=== PATIENT | male | born 2000 | race African-American/Black ===

== ENCOUNTER 2023-05-23 17:06 | Emergency (ER) | payer OTHER ==
[2023-05-23] MEDS ORDERED: Diphtheria,Pertussis(Acell),Tetanus Vaccine 0.5 ML Syringe IM ONE (17:32)
[2023-05-23] MEDS ORDERED: Lidocaine 1% PF 2 ML SDV INJECT ONE (17:32)
[2023-05-23] MEDS ORDERED: Acetaminophen/HYDROcodone 325-5 MG Tab PO ONE (18:06)
[2023-05-23] MEDS ORDERED: ceFAZolin 1 GM Vial IM ONE (18:07)
[2023-05-23] MEDS ORDERED: Bacitracin Oint 1 GM U/D Packet TOP ONE (18:08)
[2023-05-23] MEDS ORDERED: Water For Injection, Sterile 20 ML ONE (18:15)
== END 2023-05-23 19:11 | disposition home or self-care (01) ==
LOC: MW.ED 17:06
DX: S62.634B Displaced fracture of distal phalanx of right ring finger, initial encounter for open fracture (principal); S61.214A Laceration without foreign body of right ring finger without damage to nail, initial encounter; Z23 Encounter for immunization; Z88.6 Allergy status to analgesic agent; Z79.899 Other long term (current) drug therapy; W26.8XXA Contact with other sharp object(s), not elsewhere classified, initial encounter
CPT/HCPCS: 12001; 73130; 90471; 90715; 96372; 99283; A9270; J0690; J3490

== ENCOUNTER 2023-06-02 17:17 | Emergency (ER) | payer OTHER ==
[2023-06-02] MEDS ORDERED: Lidocaine 1% PF 2 ML SDV INJECT ONE (20:24)
[2023-06-02] MEDS ORDERED: Acetaminophen/HYDROcodone 325-10 MG Tab PO ONE (20:24)
== END 2023-06-02 22:01 | disposition home or self-care (01) ==
LOC: MW.ED 17:17
DX: S61.214D Laceration without foreign body of right ring finger without damage to nail, subsequent encounter (principal); Z48.02 Encounter for removal of sutures; W23.0XXD Caught, crushed, jammed, or pinched between moving objects, subsequent encounter
CPT/HCPCS: 99282; A9270; 99283; J3490